=== PATIENT | male | born 1995 | race Caucasian/White ===

== ENCOUNTER 2018-12-31 18:04 | Inpatient (IN) | payer OTHER ==
[~2018-12-31] VITALS: Ht 182.9 cm; Wt 72.6 kg
[2018-12-31] MEDS ORDERED: ALBUTEROL 0.5% (NEB) 2.5 MG/0.5 ML AMP INH STA (18:05)
[2018-12-31] MEDS ORDERED: MAGNESIUM SULFATE 2 GM/50 ML 50 ML IVPB STA (18:05)
[2018-12-31] MEDS ORDERED: TERBUTALINE 1 MG/ML INJ SC STA (18:05)
[2018-12-31] MEDS ORDERED: IPRATROPIUM (NEB) 0.5 MG/2.5 ML AMP INH STA (18:05)
[2018-12-31] MEDS ORDERED: EPINEPHrine 1 MG INJ IM STA (18:05)
[2018-12-31] MEDS ORDERED: DEXAMETHASONE 10 MG/ML 1 ML INJ IV STA (18:05)
--- NOTE | 2018-12-31 18:11 | ERD ---
ER Documentation Chief Complaint Chief Complaint Asthma SOB HPI 23-year-old male history of asthma never intubated before who presents to the emergency room with severe shortness of breath. The patient is only able to speak in one-word sentences. He has increased work of breathing and wheezing. He is receiving a breathing treatment by EMS. Patient states normal triggers are environmental factors. Remainder of HPI is limited as the patient is having difficulty breathing. ROS Critical patient Medications Home Meds Reported Medications Albuterol Sulfate* (Ventolin HFA*) 18 Gm Hfa.aer.ad, 2 PUFF INHALATION NEEDED, #1 INHALER 12/31/18 Allergies Allergies: Coded Allergies: No Known Allergy (Unverified , 12/31/18) PMhx/Soc Asthma FmHx Family History: No diabetes Physical Exam Vitals Vital Signs Date Temp Pulse Resp B/P (MAP) Pulse Ox O2 O2 Flow FiO2 Time Delivery Rate 12/31/18 97.8 110 30 136/87 100 Room Air 15.0 18:30 (103) 12/31/18 Nasal 2.0 18:30 Cannula 12/31/18 Nasal 2 18:30 Cannula 12/31/18 97.8 115 30 133/105 100 18:26 (114) 12/31/18 112 16 100 Non 15.0 100 18:17 Rebreather Mask Physical Exam General: Speaking in very short sentences, significant increased work of breath ing and accessory muscle use Head: Normocephalic, atraumatic. Eyes: Pupils equally reactive, EOM intact ENT: Moist mucous membranes Neck: Supple, no lymphadenopathy Respiratory: Decreased aeration, increased work of breathing, accessory muscle use, wheezing bilaterally Cardiovascular: Tachycardia, no murmurs, rubs, or gallops Abdominal: Soft, non-tender, non-distended, no peritoneal signs : Deferred MSK: No edema, no unilateral swelling, 5/5 strength Neurologic: Alert and oriented, moving all extremities, normal speech, no focal weakness, no cerebellar signs Skin: No rash Psych: Normal mood Result Diagram: 12/31/18181412/31/181814 Results 24 hrs Laboratory Tests Test 12/31/18 18:15 White Blood Count 9.5 10^3/ul Red Blood Count 5.16 10^6/ul Hemoglobin 14.7 g/dl Hematocrit 45.8 % Mean Corpuscular Volume 88.8 fl Mean Corpuscular Hemoglobin 28.5 pg Mean Corpuscular Hemoglobin Concent 32.1 g/dl Red Cell Distribution Width 13.9 % Platelet Count 247 10^3/UL Mean Platelet Volume 9.7 fl Immature Granulocytes % 0.300 % Neutrophils % 58.7 % Lymphocytes % 23.0 % Monocytes % 10.4 % Eosinophils % 7.3 % Basophils % 0.3 % Nucleated Red Blood Cells % 0.0 /100WBC Immature Granulocytes # 0.030 10^3/ul Neutrophils # 5.6 10^3/ul Lymphocytes # 2.2 10^3/ul Monocytes # 1.0 10^3/ul Eosinophils # 0.7 10^3/ul Basophils # 0.0 10^3/ul Nucleated Red Blood Cells # 0.0 10^3/ul Sodium Level 145 mmol/L Potassium Level 3.3 mmol/L Chloride Level 104 mmol/L Carbon Dioxide Level 26 mmol/L Anion Gap 15 Blood Urea Nitrogen 11 mg/dl Creatinine 0.78 mg/dl Est Glomerular Filtrat Rate mL/min > 60 mL/min Glucose Level 102 mg/dl Calcium Level 9.9 mg/dl Current Medications Medications Dose Sig/Georgette Start Time Status Last (Trade) Ordered Route PRN Stop Time Admin Dose Reason Admin Albuterol 15 mg ONCE STAT 12/31/18 DC 12/31/18 (Proventil INH 18:05 18:17 0.5% (Neb)) 12/31/18 18:07 Ipratropium 2 mg ONCE STAT 12/31/18 DC 12/31/18 [place] INH 18:05 18:17 (Atrovent 12/31/18 18:07 0.02% (Neb)) 10 mg ONCE STAT 12/31/18 DC 12/31/18 Dexamethasone IV 18:05 18:18 (Decadron) 12/31/18 18:07 Magnesium 50 ml @ 25 ONCE STAT 12/31/18 DC 12/31/18 Sulfate mls/hr IVPB 18:05 18:18 12/31/18 20:04 Terbutaline 0.25 mg ONCE STAT 12/31/18 DC 12/31/18 Sulfate SC 18:05 18:18 (Brethine) 12/31/18 18:07 Epinephrine 0.3 mg ONCE STAT 12/31/18 DC 12/31/18 IM 18:05 18:18 (EPINEPHrine) 12/31/18 18:07 IV Flush 3 ml PER 12/31/18 (NS 3 ml) PROTOCOL IV 20:00 Ondansetron 4 mg Q6H PRN 12/31/18 HCl (Zofran IV 20:00 Inj) NAUSEA/VOMITI NG 650 mg Q6H PRN 12/31/18 Acetaminophen PO .PAIN 1-3 20:00 (Tylenol OR TEMP Tab) Heparin 5,000 unit Q12 SC 12/31/18 Sodium 21:00 (Porcine) (Heparin (5000 Units/1ml)) Ipratropium 0.5 mg Q2H RESP 12/31/18 [place] THERAPY PRN 20:00 (Atrovent NEB 0.02% SHORTNESS OF (Neb)) BREATH 0.63 mg Q2H RESP 12/31/18 Levalbuterol THERAPY PRN 20:00 (Xopenex HHN Neb) sob/wheezing 0.63 mg Q3H RESP 12/31/18 Levalbuterol THERAPY HHN 20:00 (Xopenex Neb) Ipratropium 0.5 mg Q3H RESP 12/31/18 [place] THERAPY HHN 20:00 (Atrovent 0.02% (Neb)) Procedures/MDM EKG, MONITORS, & DIAGNOSTIC IMAGING: Chest x-ray: Chest x-ray: I reviewed and interpreted a 1 view of the chest Mediastinum: No enlargement Cardiac silhouette: No cardiomegaly Airspace: Clear lung [place] bilaterally without evidence of pneumothorax Bones: No evidence of fracture LAB INTERPRETATION: I reviewed the laboratory testing and it shows [no evidence of acute process] MEDICAL DECISION MAKING: The patient presents in severe respiratory distress secondary to asthma exacerbation. Patient will benefit from aggressive treatment and therapy. Low concern for pneumonia. No signs or symptoms concerning for pulmonary embolism. At this point the patient continues to be able to keep up with his respiratory needs. I do not believe the positive pressure ventilation or intubation are necessary at this time. Continue to monitor with serial exams. ER COURSE: * The patient is critically ill upon arrival. Emergent respiratory therapy consultation for hour-long breathing treatment was initiated. * Patient was given Decadron, magnesium, epinephrine subcutaneously * The patient does have some improvements but still with increased work of breathing. Given the patient's persistence of symptoms, severity of presentation inpatient hospitalization would be most appropriate. No indication for positive pressure ventilation or intubation at this time. CONSULTATION: [None] DISPOSITION PLAN: Telemetry admission given severity of disease Accepting care team and consultations: I discussed the current laboratory data, diagnostic imaging and emergency care provided. Admitting team: Dr. Price Admitting team indication: Insurance directed Critical Care Note: Total time: 45 minutes Indication/Organ System Threat: Status asthmaticus I spent the above amount of critical care time with the patient, not including billable procedures. This included chart review, consultations, repeat bedside evaluations, and titration of appropriate medications to prevent cardiopulmonary or respiratory collapse. Departure Diagnosis: Primary Impression: Status asthmaticus Asthma severity: severe Asthma persistence: persistent Qualified Codes: J45.52 - Severe persistent asthma with status asthmaticus Condition: MICHAEL Carrera MD Dec 31, 2018 18:11
[2018-12-31] MEDS ORDERED: ALBU18HF INHALATION (19:20)
[2018-12-31] MEDS ORDERED: IPRATROPIUM (NEB) 0.5 MG/2.5 ML AMP NEB PRN (20:00)
[2018-12-31] MEDS ORDERED: ONDANSETRON 4 MG INJ IV PRN (20:00)
[2018-12-31] MEDS ORDERED: ACETAMINOPHEN 325 MG TAB PO PRN (20:00)
[2018-12-31] MEDS ORDERED: NACL 0.9% 3 ML SYG IV SCH (20:00)
[2018-12-31] MEDS ORDERED: LEVALBUTEROL (NEB) 0.63 MG/3 ML AMP HHN PRN (20:00)
[2018-12-31] MEDS: HEPARIN 5,000 UNIT/1 ML VIAL SC SCH (22:24)
[2018-12-31] MEDS: IPRATROPIUM (NEB) 0.5 MG/2.5 ML AMP HHN SCH ×2 (22:50→23:36)
[2018-12-31] MEDS: LEVALBUTEROL (NEB) 0.63 MG/3 ML AMP HHN SCH ×2 (22:55→23:36)
[2018-12-31 23:05] VITALS: Ht 182.9 cm; Wt 72.6 kg
[2018-12-31 23:08] VITALS: BP 140/79; PULSE 112; RESP 22
--- NOTE | 2018-12-31 23:21 | HP ---
Date/Time of Note Date/Time of Note DATE: 12/31/18 TIME: 23:20 Assessment/Plan VTE Prophylaxis Pharmacological prophylaxis: heparin Lines/Catheters IV [facility]from [facility] Saline Lock Assessment/Plan Assessment/Plan 23-year-old male with history of asthma presented with respiratory distress, secondary to asthma exacerbation PLAN -Patient status post Decadron, epinephrine and breathing treatments in the ER with improvement in symptom -Continue supplemental oxygen, bronchodilators and steroid -Pulmonary consult in a.m. Result Diagram: 12/31/18 1815 12/31/18 1815 Results 24hrs Laboratory Tests Test 12/31/18 18:15 White Blood Count 9.5 Red Blood Count 5.16 Hemoglobin 14.7 Hematocrit 45.8 Mean Corpuscular Volume 88.8 Mean Corpuscular Hemoglobin 28.5 L Mean Corpuscular Hemoglobin Concent 32.1 Red Cell Distribution Width 13.9 Platelet Count 247 Mean Platelet Volume 9.7 Immature Granulocytes % 0.300 Neutrophils % 58.7 Lymphocytes % 23.0 Monocytes % 10.4 Eosinophils % 7.3 H Basophils % 0.3 Nucleated Red Blood Cells % 0.0 Immature Granulocytes # 0.030 Neutrophils # 5.6 Lymphocytes # 2.2 Monocytes # 1.0 H Eosinophils # 0.7 H Basophils # 0.0 Nucleated Red Blood Cells # 0.0 Sodium Level 145 H Potassium Level 3.3 L Chloride Level 104 Carbon Dioxide Level 26 Anion Gap 15 H Blood Urea Nitrogen 11 Creatinine 0.78 Est Glomerular Filtrat Rate mL/min > 60 Glucose Level 102 Calcium Level 9.9 HPI/ROS Admit Date/Time Admit Date/Time Dec 31, 2018 at 19:53 Hx of Present Illness This is a 23-year-old male with a history of asthma who presents the ER complaining of shortness of breath and wheezing. Symptom has been progressively getting worse since yesterday. He has been using his albuterol with increased frequency without significant relief. When he presented to ER, patient was in significant respiratory distress and was using his muscles. He was given breathing treatments, Decadron and epinephrine with improvement in symptoms. PMH/Family/Social Past Medical History Past Surgical History Past Surgical Hx: other (see hpi) Family History Significant Family History: other Social History Smoking Status: Unknown if ever smoked Drug Use: other Exam Constitutional: other (no acute distress) Eyes: EOMI, PERRL Neck: supple Respiratory: normal air movement Cardiovascular: nl pulses Gastrointestinal: soft Extremities: normal pulses Medications Current Medications IV Flush (NS 3 ml) 3 ml PER PROTOCOL IV ; Start 12/31/18 at 20:00 Ondansetron HCl (Zofran Inj) 4 mg Q6H PRN IV NAUSEA/VOMITING; Start 12/31/18 at 20:00 Acetaminophen (Tylenol Tab) 650 mg Q6H PRN PO .PAIN 1-3 OR TEMP; Start 12/31/18 at 20:00 Heparin Sodium (Porcine) (Heparin (5000 Units/1ml)) 5,000 unit Q12 SC Last administered on 12/31/18at 22:24; Admin Dose 5,000 UNIT; Start 12/31/18 at 21:00 Ipratropium [place] (Atrovent 0.02% (Neb)) 0.5 mg Q2H RESP THERAPY PRN NEB SHORTNESS OF BREATH; Start 12/31/18 at 20:00 Levalbuterol (Xopenex Neb) 0.63 mg Q2H RESP THERAPY PRN HHN sob/wheezing; Start 12/31/18 at 20:00 Levalbuterol (Xopenex Neb) 0.63 mg Q3H RESP THERAPY HHN ; Start 12/31/18 at 20:00 Ipratropium [place] (Atrovent 0.02% (Neb)) 0.5 mg Q3H RESP THERAPY HHN ; Start 12/31/18 at 20:00 Coded Allergies: No Known Allergy (Unverified , 12/31/18) Social History Smoking Status: Unknown if ever smoked Exam/Review of Systems Vital Signs Vitals Vital Signs Date Temp Pulse Resp B/P (MAP) Pulse Ox O2 O2 Flow FiO2 Time Delivery Rate 12/31/18 97.5 112 22 140/79 95 Nasal 5.0 23:08 (99) Cannula 12/31/18 100 18:17 VANESSA CALDERA MD Dec 31, 2018 23:20
[2019-01-01] VITALS (13 sets, daily range): BP systolic 106–139; BP diastolic 55–81; PULSE 72–119; RESP 18–22
[2019-01-01] MEDS: IPRATROPIUM (NEB) 0.5 MG/2.5 ML AMP HHN SCH ×8 (02:28→23:58)
[2019-01-01] MEDS: LEVALBUTEROL (NEB) 0.63 MG/3 ML AMP HHN SCH ×8 (02:29→23:58)
[2019-01-01] MEDS: HEPARIN 5,000 UNIT/1 ML VIAL SC SCH ×2 (08:08→20:31)
[2019-01-01] MEDS ORDERED: METHYLPREDNISOLONE 125 MG INJ IV SCH (09:00)
--- NOTE | 2019-01-01 15:17 | PN ---
Date/Time of Note Date/Time of Note DATE: 01/01/19 TIME: 15:16 Assessment/Plan VTE Prophylaxis Risk score (from Ns)>0 risk: 1 SCD applied (from Ns): Yes Pharmacological prophylaxis: LMWH Lines/Catheters IV [facility]from [facility] Saline Lock Urinary Cath still in place: No Assessment/Plan Assessment/Plan 1. asthma, acute attack, improving, decrease solumedrol 2. DVT prophylaxis: heparin Result Diagram: 01/01/19 0743 01/01/19 0743 Results 24hrs Laboratory Tests Test 12/31/18 18:15 01/01/19 07:43 White Blood Count 9.5 5.5 # Red Blood Count 5.16 5.03 Hemoglobin 14.7 14.3 Hematocrit 45.8 44.5 Mean Corpuscular Volume 88.8 88.5 Mean Corpuscular Hemoglobin 28.5 L 28.4 L Mean Corpuscular Hemoglobin Concent 32.1 32.1 Red Cell Distribution Width 13.9 14.1 Platelet Count 247 259 Mean Platelet Volume 9.7 9.9 Immature Granulocytes % 0.300 0.400 Neutrophils % 58.7 69.2 Lymphocytes % 23.0 17.8 Monocytes % 10.4 12.4 H Eosinophils % 7.3 H 0.0 Basophils % 0.3 0.2 Nucleated Red Blood Cells % 0.0 0.0 Immature Granulocytes # 0.030 0.020 Neutrophils # 5.6 3.8 Lymphocytes # 2.2 1.0 Monocytes # 1.0 H 0.7 Eosinophils # 0.7 H 0.0 Basophils # 0.0 0.0 Nucleated Red Blood Cells # 0.0 0.0 Sodium Level 145 H 142 Potassium Level 3.3 L 4.0 Chloride Level 104 106 Carbon Dioxide Level 26 27 Anion Gap 15 H 9 # Blood Urea Nitrogen 11 16 Creatinine 0.78 0.74 Est Glomerular Filtrat Rate mL/min > 60 > 60 Glucose Level 102 117 Calcium Level 9.9 9.8 Magnesium Level 2.6 H Total Bilirubin 0.3 Direct Bilirubin 0.00 Indirect Bilirubin 0.3 Aspartate Amino Transf (AST/SGOT) 24 Alanine Aminotransferase (ALT/SGPT) 25 Alkaline Phosphatase 78 Total Protein 7.9 Albumin 4.3 Globulin 3.60 H Albumin/Globulin Ratio 1.19 Subjective 24 Hr Interval Summary Free Text/Dictation less shortness of breath Exam/Review of Systems Exam Vitals Vital Signs Date Temp Pulse Resp B/P (MAP) Pulse Ox O2 O2 Flow FiO2 Time Delivery Rate 01/01/19 96 4.0 14:33 01/01/19 103 22 Nasal 36 14:32 Cannula 01/01/19 97.6 139/81 11:42 (100) Constitutional: alert, oriented, well developed Psych: no complaints, nl mood/affect Head: normocephalic, atraumatic Eyes: nl conjunctiva, EOMI, nl lids, PERRL ENMT: nl external ears & nose, nl lips & teeth, nl nasal mucosa & septum Neck: supple, non-tender Respiratory: clear to auscultation, normal air movement; No congested cough, No crackles/rales, No diminished breath sounds, No intercostal retraction, No labored breathing, No respirations, No tactile fremitus, No wheezing, No other Cardiovascular: regular rate and rhythm, nl pulses; No bruits, No diastolic murmur, No edema, No gallop, No irregular rhythm, No jugular venous distention (JVD), No murmurs/extra sounds, No rub, No systolic murmur, No S3, No S4, No other Gastrointestinal: soft, non-tender Musculoskeletal: nl extremities to inspection Extremities: normal pulses Neurological: ASBESTOS WORKER II-XII intact, nl mental status, nl speech, nl strength Results Results 24hrs Laboratory Tests Test 12/31/18 18:15 01/01/19 07:43 White Blood Count 9.5 5.5 # Red Blood Count 5.16 5.03 Hemoglobin 14.7 14.3 Hematocrit 45.8 44.5 Mean Corpuscular Volume 88.8 88.5 Mean Corpuscular Hemoglobin 28.5 L 28.4 L Mean Corpuscular Hemoglobin Concent 32.1 32.1 Red Cell Distribution Width 13.9 14.1 Platelet Count 247 259 Mean Platelet Volume 9.7 9.9 Immature Granulocytes % 0.300 0.400 Neutrophils % 58.7 69.2 Lymphocytes % 23.0 17.8 Monocytes % 10.4 12.4 H Eosinophils % 7.3 H 0.0 Basophils % 0.3 0.2 Nucleated Red Blood Cells % 0.0 0.0 Immature Granulocytes # 0.030 0.020 Neutrophils # 5.6 3.8 Lymphocytes # 2.2 1.0 Monocytes # 1.0 H 0.7 Eosinophils # 0.7 H 0.0 Basophils # 0.0 0.0 Nucleated Red Blood Cells # 0.0 0.0 Sodium Level 145 H 142 Potassium Level 3.3 L 4.0 Chloride Level 104 106 Carbon Dioxide Level 26 27 Anion Gap 15 H 9 # Blood Urea Nitrogen 11 16 Creatinine 0.78 0.74 Est Glomerular Filtrat Rate mL/min > 60 > 60 Glucose Level 102 117 Calcium Level 9.9 9.8 Magnesium Level 2.6 H Total Bilirubin 0.3 Direct Bilirubin 0.00 Indirect Bilirubin 0.3 Aspartate Amino Transf (AST/SGOT) 24 Alanine Aminotransferase (ALT/SGPT) 25 Alkaline Phosphatase 78 Total Protein 7.9 Albumin 4.3 Globulin 3.60 H Albumin/Globulin Ratio 1.19 Medications Medication Current Medications IV Flush (NS 3 ml) 3 ml PER PROTOCOL IV ; Start 12/31/18 at 20:00 Ondansetron HCl (Zofran Inj) 4 mg Q6H PRN IV NAUSEA/VOMITING; Start 12/31/18 at 20:00 Acetaminophen (Tylenol Tab) 650 mg Q6H PRN PO .PAIN 1-3 OR TEMP; Start 12/31/18 at 20:00 Heparin Sodium (Porcine) (Heparin (5000 Units/1ml)) 5,000 unit Q12 SC Last administered on 01/01/19at 08:08; Admin Dose 5,000 UNIT; Start 12/31/18 at 21:00 Ipratropium [place] (Atrovent 0.02% (Neb)) 0.5 mg Q2H RESP THERAPY PRN NEB SHORTNESS OF BREATH; Start 12/31/18 at 20:00 Levalbuterol (Xopenex Neb) 0.63 mg Q2H RESP THERAPY PRN HHN sob/wheezing; Start 12/31/18 at 20:00 Levalbuterol (Xopenex Neb) 0.63 mg Q3H RESP THERAPY HHN Last administered on 01/01/19at 14:30; Admin Dose 0.63 MG; Start 12/31/18 at 20:00 Ipratropium [place] (Atrovent 0.02% (Neb)) 0.5 mg Q3H RESP THERAPY HHN Last administered on 01/01/19at 14:30; Admin Dose 0.5 MG; Start 12/31/18 at 20:00 Influenza Virus Vaccine Quadrival (Fluzone) 0.5 ml ONCE ONCE IM* ; Start 01/02/19 at 10:00; Stop 01/02/19 at 10:01 Methylprednisolone Sodium Succinate (Solu-Medrol) 60 mg Q12 IV Last administered on 01/01/19at 08:02; Admin Dose 60 MG; Start 01/01/19 at 09:00 OLIVER MELGOZA MD Jan 01, 2019 15:17
[2019-01-01] MEDS: METHYLPREDNISOLONE 40 MG INJ IV SCH (19:49)
[2019-01-01] MEDS ORDERED: METHYLPREDNISOLONE 40 MG INJ IV SCH (21:00)
[2019-01-02] VITALS (11 sets, daily range): BP systolic 101–118; BP diastolic 55–71; PULSE 66–106; RESP 18–20
[2019-01-02] MEDS: LEVALBUTEROL (NEB) 0.63 MG/3 ML AMP HHN SCH ×7 (02:32→23:36)
[2019-01-02] MEDS: IPRATROPIUM (NEB) 0.5 MG/2.5 ML AMP HHN SCH ×7 (02:32→23:36)
[2019-01-02] MEDS: METHYLPREDNISOLONE 40 MG INJ IV SCH ×2 (08:29→21:22)
[2019-01-02] MEDS: HEPARIN 5,000 UNIT/1 ML VIAL SC SCH ×2 (08:38→21:30)
[2019-01-02] MEDS ORDERED: INFLUENZA VIRUS VACCINE 0.5 ML (DISPENSING) IM* ONE (10:00)
[2019-01-02] MEDS ORDERED: LEVALBUTEROL (NEB) 0.63 MG/3 ML AMP HHN PRN ×2 (20:00→20:30)
[2019-01-02] MEDS ORDERED: IPRATROPIUM (NEB) 0.5 MG/2.5 ML AMP NEB PRN (20:00)
[2019-01-02] MEDS ORDERED: IPRATROPIUM (NEB) 0.5 MG/2.5 ML AMP HHN PRN (20:30)
[2019-01-03] VITALS (10 sets, daily range): BP systolic 110–128; BP diastolic 55–73; PULSE 71–100; RESP 17–20
[2019-01-03] MEDS: LEVALBUTEROL (NEB) 0.63 MG/3 ML AMP HHN SCH ×6 (02:56→16:03)
[2019-01-03] MEDS: IPRATROPIUM (NEB) 0.5 MG/2.5 ML AMP HHN SCH ×6 (02:56→16:03)
[2019-01-03] MEDS: METHYLPREDNISOLONE 40 MG INJ IV SCH (09:10)
[2019-01-03] MEDS: HEPARIN 5,000 UNIT/1 ML VIAL SC SCH (09:18)
[2019-01-03] MEDS ORDERED: IPRA3AMP29 INHALATION (16:27)
[2019-01-03] MEDS ORDERED: PRED20TA PO (16:27)
--- NOTE | 2019-01-03 16:30 | DS ---
Date/Time of Note Date/Time of Note DATE: 01/03/19 TIME: 16:27 Discharge Summary Admission/Discharge Info Admit Date/Time Dec 31, 2018 at 19:53 Discharge Date/Time Discharge Diagnosis 1. asthma, acute attack, improved, follow up with PCP in one week Patient Condition: Stable Hospital Course This is a 23-year-old male with a history of asthma who presents the ER complaining of shortness of breath and wheezing. Symptom has been progressively getting worse since yesterday. He has been using his albuterol with increased frequency without significant relief. When he presented to ER, patient was in significant respiratory distress and was using his muscles. CXR unremarkable. Patient is treated with nebulizer, O2 and solumedrol, symptoms gradually improved. He is discharged with nebulizer prn along with tapering dosage of prednisone. Home Meds Active Scripts Prednisone (Prednisone) 20 Mg Tab, 20 MG PO BID for 3 Days, TAB prednisone 20 mg po bid for 3 days, then 20 mg po daily for 3 days, then 10 mg po daily for 3 days Prov:OLIVER MELGOZA MD 01/03/19 Ipratropium-Albuterol (Ipratropium-Albuterol) 0.5-3 Mg/3 Ml Ampul.neb, 3 ML INHALATION Q6, #30 VIAL Prov:OLIVER MELGOZA MD 01/03/19 Reported Medications Albuterol Sulfate* (Ventolin HFA*) 18 Gm Hfa.aer.ad, 2 PUFF INHALATION NEEDED, #1 INHALER 12/31/18 Follow-up Plan PCP in one week hand hold nebulizer Primary Care Provider Care Physician No Primary Pending Labs Laboratory Tests Test 01/03/19 06:21 White Blood Count 10.3 10^3/ul (4.8-10.8) Red Blood Count 5.17 10^6/ul (4.70-6.10) Hemoglobin 14.7 g/dl (14.0-18.0) Hematocrit 45.6 % (42.0-52.0) Mean Corpuscular Volume 88.2 fl (82.0-101.0) Mean Corpuscular Hemoglobin 28.4 pg (29.0-33.0) Mean Corpuscular Hemoglobin Concent 32.2 g/dl (32.0-37.0) Red Cell Distribution Width 14.0 % (11.5-14.5) Platelet Count 259 10^3/UL (140-415) Mean Platelet Volume 10.0 fl (7.4-10.4) Immature Granulocytes % 0.500 % (0.001-0.429) Neutrophils % 70.1 % (39.0-77.0) Lymphocytes % 19.4 % (15.0-51.0) Monocytes % 9.7 % (0.0-11.0) Eosinophils % 0.1 % (0.0-7.0) Basophils % 0.2 % (0.0-2.0) Nucleated Red Blood Cells % 0.0 /100WBC (0.0-0.0) Immature Granulocytes # 0.050 10^3/ul (0.0-0.031) Neutrophils # 7.2 10^3/ul (1.6-7.5) Lymphocytes # 2.0 10^3/ul (0.8-2.9) Monocytes # 1.0 10^3/ul (0.3-0.9) Eosinophils # 0.0 10^3/ul (0.0-0.5) Basophils # 0.0 10^3/ul (0.0-0.1) Nucleated Red Blood Cells # 0.0 10^3/ul (0.0-0.0) Sodium Level 143 mmol/L (135-144) Potassium Level 4.3 mmol/L (3.5-5.1) Chloride Level 101 mmol/L (97-110) Carbon Dioxide Level 28 mmol/L (21-31) Anion Gap 14 (5-13) Blood Urea Nitrogen 32 mg/dl (7-20) Creatinine 0.83 mg/dl (0.61-1.24) Est Glomerular Filtrat Rate mL/min > 60 mL/min (>60) Glucose Level 110 mg/dl (70-220) Calcium Level 9.7 mg/dl (8.4-10.2) OLIVER MELGOZA MD Jan 03, 2019 16:30
== END 2019-01-03 17:11 | disposition home or self-care (01) | DRG 203 ==
LOC: E/R 18:04 → TEL 19:53
PROVIDERS: ADMIT Internal Medicine; ATTEND Internal Medicine
DX: J45.901 Unspecified asthma with (acute) exacerbation (principal); R06.03 Acute respiratory distress
CPT/HCPCS: 71045; 80048; 80053; 83735; 85025; 90686; 93005; 94640; 94644; 94664; 96372; 96374; 96375; J0171; J1100; J1644; J2920; J2930; J3105; J3475

== ENCOUNTER 2019-06-13 16:20 | Inpatient (IN) | payer MEDICAID, OTHER ==
[~2019-06-13] VITALS: Ht 182.9 cm; Wt 84.6 kg
[~2019-06-13 16:20] MED LIST: ALBU18HF INHALATION; APIX5TAB PO; IPRA3AMP29 INHALATION; PRED20TA PO
[2019-06-13 16:25] VITALS: Ht 182.9 cm; Wt 84.6 kg
[2019-06-13] MEDS ORDERED: APIXABAN 5 MG TABLET PO ONE (17:00)
[2019-06-13] MEDS ORDERED: ACETAMINOPHEN 325 MG TAB PO PRN ×2 (17:30→18:00)
[2019-06-13] MEDS ORDERED: ONDANSETRON 4 MG INJ IV PRN ×2 (17:30→18:00)
[2019-06-13] MEDS ORDERED: ALBUTEROL 0.083% (NEB) 2.5 MG/3 ML AMP HHN PRN (18:00)
[2019-06-13] MEDS ORDERED: NACL 0.9% 3 ML SYG IV SCH (18:00)
[2019-06-13] MEDS ORDERED: HYDROCODONE/APAP (5/325) TAB PO PRN (18:00)
[2019-06-13] MEDS: APIXABAN 5 MG TABLET PO SCH (20:18)
[2019-06-13] MEDS: FAMOTIDINE 20 MG TAB PO SCH (20:19)
[2019-06-13 22:20] VITALS: BP 105/56; PULSE 68; RESP 18
[2019-06-14 02:12] VITALS: BP 101/57; PULSE 62; RESP 18
[2019-06-14 07:43] VITALS: BP 116/65; PULSE 60; RESP 18
[2019-06-14] MEDS: APIXABAN 5 MG TABLET PO SCH ×2 (09:13→18:53)
[2019-06-14] MEDS: FAMOTIDINE 20 MG TAB PO SCH (09:13)
[2019-06-14 14:31] VITALS: BP 107/57; PULSE 61; RESP 20
== END 2019-06-14 19:05 | disposition home or self-care (01) | DRG 301 ==
LOC: FTE 16:20 → 2NE 17:22
PROVIDERS: ADMIT Internal Medicine; ATTEND Internal Medicine
DX: I82.442 Acute embolism and thrombosis of left tibial vein (principal); F17.200 Nicotine dependence, unspecified, uncomplicated; J45.909 Unspecified asthma, uncomplicated; M25.471 Effusion, right ankle; M25.472 Effusion, left ankle; Z79.02 Long term (current) use of antithrombotics/antiplatelets
CPT/HCPCS: 36415; 80048; 81240; 83735; 85025; 85300; 85302; 85305; 85610; 85730